=== PATIENT | male | born 1990 | race Hispanic/Latino ===

== ENCOUNTER 2019-06-20 22:03 | Emergency (ER) | payer SELFPAY ==
[2019-06-20] MEDS ORDERED: NA CHLORIDE 0.9% 1,000 ML ONE (22:47)
[2019-06-20] MEDS ORDERED: ACETAMINOPHEN 500 MG TAB ONE (23:03)
--- NOTE | 2019-06-21 00:42 | EDPHYS ---
Physician Documentation [facility] Name: Kieran Carrasquillo Age: 29 yrs Sex: Male : 1990 Arrival Date: 06/20/2019 Time: 22:08 Bed 14 Private MD: ED Physician Praveen Shannon HPI: 06/20 22:40 This 29 yrs old Male presents to ER via Ambulatory with complaints of Fever, rn Chills. 22:40 The patient reports fever, not measured (subjective). Onset: The symptoms/episode rn began/occurred yesterday. Modifying factors: there are no obvious modifying factors. Associated signs and symptoms: Pertinent positives: cough, myalgias, sore throat. Severity of symptoms: At their worst the symptoms were moderate in the emergency department the symptoms have improved. The patient has not experienced similar symptoms in the past. Reports woke up today with fever/chills/muscle aches/fatigue. No known sick contacts. Took motrin and went to work, outside, got home and felt worse. Denies chest pain/sob/abd pain/vomiting/diarrhea. States drinking some water but probably not enough.. Historical: - Allergies: 22:15 No Known Allergies; ca1 - Home Meds: 22:15 None [Active]; ca1 - PMHx: 22:15 None; ca1 - PSHx: 22:15 None; ca1 - Immunization history:: Adult Immunizations not up to date. - Social history:: Smoking status: Patient uses tobacco products, denies chronic smoking, but will smoke occasionally. - Ebola Screening: : Patient negative for fever greater than or equal to 101.5 degrees Fahrenheit, and additional compatible Ebola Virus Disease symptoms Patient denies exposure to infectious person Patient denies travel to an Ebola-affected area in the 21 days before illness onset No symptoms or risks identified at this time. - Family history:: not pertinent. - Hospitalizations: : No recent hospitalization is reported. 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 Head/Face: Normocephalic, atraumatic. Eyes: Pupils equal round and reactive to light, extra-ocular motions intact. Lids and lashes normal. Conjunctiva and sclera are non-icteric and not injected. Cornea within normal limits. Periorbital areas with no swelling, redness, or edema. ENT: Mild pharyngeal erythema, no swelling, no stridor, no exudate Neck: Trachea midline, no thyromegaly or masses palpated, and no cervical lymphadenopathy. Supple, full range of motion without nuchal rigidity, or vertebral point tenderness. No Meningismus. Cardiovascular: Regular rate and rhythm. No pulse deficits. Respiratory: Lungs have equal breath sounds bilaterally. No increased work of breathing, no retractions or nasal flaring. Abdomen/GI: soft, non-tender MS/ Extremity: Pulses equal, no cyanosis. Neurovascular intact. Full, normal range of motion. Equal circumference. Neuro: Awake and alert, GCS 15, oriented to person, place, time, and situation. Cranial nerves II-XII grossly intact. Motor strength 5/5 in all extremities. Sensory grossly intact. Cerebellar exam normal. Vital Signs: 22:15 BP 115 / 79; Pulse 87; Resp 19 S; Temp 100.3(O); Pulse Ox 97% on R/A; Weight 120.2 kg ca1 (R); Height 6 ft. (182.88 cm) (R); Pain 10/10; 22:50 BP 102 / 63; Pulse 95; Resp 20; Temp 102.2; Pulse Ox 100% ; Pain 10/10; rr5 06/21 00:22 BP 117 / 72; Pulse 66; Resp 15; Temp 100; Pulse Ox 100% ; rr5 00:52 BP 111 / 75; Pulse 69; Resp 17; Temp 100; Pulse Ox 98% ; rr5 06/20 22:15 Body Mass Index 35.94 (120.20 kg, 182.88 cm) ca1 MDM: 06/20 22:29 Patient medically screened. rn 06/21 00:35 Differential diagnosis: viral Infection, bacterial infection, URI, pneumonia. Data rn reviewed: vital signs, nurses notes, lab test result(s), radiologic studies, plain films, and as a result, I will discharge patient. Test interpretation: by ED physician or midlevel provider: plain radiologic studies, CXR negative for focal pneumonia or infiltrate. Counseling: I had a detailed discussion with the patient and/or guardian regarding: the historical points, exam findings, and any diagnostic results supporting the discharge/admit diagnosis, lab results, radiology results, the need for outpatient follow up, to return to the emergency department if symptoms worsen or persist or if there are any questions or concerns that arise at home. Response to treatment: the patient's symptoms have mildly improved after treatment, and as a result, I will discharge patient. Special discussion: I discussed with the patient/guardian in detail that at this point there is no indication for admission to the hospital. It is understood, however, that if the symptoms persist or worsen the patient needs to return immediately for re-evaluation. ED course: Neg w/u here, most likely viral syndrome given constellation of symptoms, no meningismus or neck stiffness. Will dc home with return precautions. . 06/20 22:39 Order name: Flu; Complete Time: 23:17 rn 06/20 22:39 Order name: Strep; Complete Time: 23:17 rn 06/20 22:39 Order name: [place] Screen Profile; Complete Time: 00:34 rn 06/20 22:39 Order name: XRAY Chest (1 view) rn 06/20 23:15 Order name: Throat Culture EDID 06/20 22:39 Order name: IV Start; Complete Time: 23:06 rn Administered Medications: 06/20 23:05 Drug: NS 0.9% 1000 ml Route: IV; Rate: 1000 ml; Site: right antecubital; rr5 06/21 00:20 Follow up: Response: No adverse reaction; IV Status: Completed infusion; IV Intake: rr5 1000ml 06/20 23:05 Drug: Tylenol 1000 mg {Note: Temp 101.2 .} Route: PO; rr5 06/21 00:05 Follow up: Response: No adverse reaction rr5 Disposition: 06/21/19 00:37 Discharged to Home. Impression: Fever, unspecified, Acute upper respiratory infection, unspecified. - Condition is Stable. - Discharge Instructions: Fever, Adult, Upper Respiratory Infection, Adult, Viral Respiratory Infection. - Medication Reconciliation Form, Thank You Letter, Antibiotic Education, Prescription Opioid Use form. - Follow up: Private Physician; When: As needed; Reason: Recheck today's complaints, Re-evaluation by your physician. - Problem is new. - Symptoms have improved. Signatures: Dispatcher [employer] EDMS Praveen Shannon MD MD rn Roque, Raymond, RN RN rr5 Sayra Escobedo RN RN ca1 Corrections: (The following items were deleted from the chart) 00:54 00:37 06/21/2019 00:37 Discharged to Home. Impression: Fever, unspecified; Acute upper rr5 respiratory infection, unspecified. Condition is Stable. Forms are Medication Reconciliation Form, Thank You Letter, Antibiotic Education, Prescription Opioid Use. Follow up: Private Physician; When: As needed; Reason: Recheck today's complaints, Re-evaluation by your physician. Problem is new. Symptoms have improved. rn
--- NOTE | 2019-06-21 00:42 | ER ---
Nurse's Notes [facility] Name: Kieran Carrasquillo Age: 29 yrs Sex: Male : 1990 Arrival Date: 06/20/2019 Time: 22:08 Bed 14 Private MD: Diagnosis: Fever, unspecified;Acute upper respiratory infection, unspecified Presentation: 06/20 22:11 Presenting complaint: Patient states: "I have been having fever and chills since ca1 Thursday night." Pt c/o headache, fatigue, dizziness, sore throat, cough and pain all over. Denies N/V/D. Transition of care: patient was not received from another setting of care. Onset of symptoms was June 18, 2019. Risk Assessment: Do you want to hurt yourself or someone else? Patient reports no desire to harm self or others. Initial Sepsis Screen: Does the patient meet any 2 criteria? No. Patient's initial sepsis screen is negative. Does the patient have a suspected source of infection? No. Patient's initial sepsis screen is negative. Care prior to arrival: None. 22:11 Method Of Arrival: Ambulatory ca1 22:11 Acuity: RONNIE 4 ca1 Historical: - Allergies: 22:15 No Known Allergies; ca1 - Home Meds: 22:15 None [Active]; ca1 - PMHx: 22:15 None; ca1 - PSHx: 22:15 None; ca1 - Immunization history:: Adult Immunizations not up to date. - Social history:: Smoking status: Patient uses tobacco products, denies chronic smoking, but will smoke occasionally. - Ebola Screening: : Patient negative for fever greater than or equal to 101.5 degrees Fahrenheit, and additional compatible Ebola Virus Disease symptoms Patient denies exposure to infectious person Patient denies travel to an Ebola-affected area in the 21 days before illness onset No symptoms or risks identified at this time. - Family history:: not pertinent. - Hospitalizations: : No recent hospitalization is reported. Screenin:31 Abuse screen: Denies threats or abuse. Denies injuries from another. Nutritional rr5 screening: No deficits noted. Tuberculosis screening: No symptoms or risk factors identified. Fall Risk None identified. Total Christian Fall Scale indicates No Risk (0-24 pts). Assessment: 22:28 General: Appears in no apparent distress. uncomfortable, Behavior is calm, cooperative, rr5 appropriate for age, Reports chills for 2-3 days, fever for fatigue for 2-3 days. Pain: Complains of pain in body Pain does not radiate. Pain currently is 10 out of 10 on a pain scale. Quality of pain is described as aching, Pain began gradually, Is intermittent. Neuro: Level of Consciousness is awake, alert, obeys commands, Oriented to person, place, time, situation, Appropriate for age Reports dizziness, headache. Cardiovascular: Capillary refill < 3 seconds Patient's skin is warm and dry. Respiratory: Reports cough that is Airway is patent Respiratory effort is even, unlabored, Respiratory pattern is regular, symmetrical. GI: Patient currently denies nausea, vomiting. : No signs and/or symptoms were reported regarding the genitourinary system. EENT: Reports pain in throat. Derm: Skin is intact, Skin temperature is warm. Musculoskeletal: Circulation, motion, and sensation intact. Capillary refill < 3 seconds, Reports pain in body. 23:10 Reassessment: Patient appears in no apparent distress at this time. Patient and/or rr5 family updated on plan of care and expected duration. Pain level reassessed. Patient is alert, oriented x 3, equal unlabored respirations, skin warm/dry/pink. awaiting for laboratory results. 06/21 00:00 Reassessment: Patient appears in no apparent distress at this time. Patient and/or rr5 family updated on plan of care and expected duration. Pain level reassessed. Patient is alert, oriented x 3, equal unlabored respirations, skin warm/dry/pink. awaiting for result. 00:45 Reassessment: Patient appears in no apparent distress at this time. Patient is alert, rr5 oriented x 3, equal unlabored respirations, skin warm/dry/pink. discharge instruction given and explained without complaints made. Patient states feeling better. Patient states symptoms have improved. Vital Signs: 06/20 22:15 BP 115 / 79; Pulse 87; Resp 19 S; Temp 100.3(O); Pulse Ox 97% on R/A; Weight 120.2 kg ca1 (R); Height 6 ft. (182.88 cm) (R); Pain 10/10; 22:50 BP 102 / 63; Pulse 95; Resp 20; Temp 102.2; Pulse Ox 100% ; Pain 10/10; rr5 06/21 00:22 BP 117 / 72; Pulse 66; Resp 15; Temp 100; Pulse Ox 100% ; rr5 00:52 BP 111 / 75; Pulse 69; Resp 17; Temp 100; Pulse Ox 98% ; rr5 06/20 22:15 Body Mass Index 35.94 (120.20 kg, 182.88 cm) ca1 ED Course: 06/20 22:08 Patient arrived in ED. ds1 22:14 Triage completed. ca1 22:15 Arm band placed on right wrist. ca1 22:21 Patient has correct armband on for positive identification. Placed in gown. Bed in low ca1 position. Call light in reach. Side rails up X 1. Pulse ox on. NIBP on. 22:23 Jeff Schofield, IDRIS is Primary Nurse. rr5 22:29 Praveen Shannon MD is Attending Physician. rn 22:54 XRAY Chest (1 view) In Process Unspecified. EDMS 22:59 Inserted saline lock: 20 gauge in right antecubital area, using aseptic technique. jd2 23:00 Flu and/or RSV swab sent to lab. Strep swab sent to lab. jd2 06/21 00:52 No provider procedures requiring assistance completed. IV discontinued, intact, rr5 bleeding controlled, No redness/swelling at site. Pressure dressing applied. Administered Medications: 06/20 23:05 Drug: NS 0.9% 1000 ml Route: IV; Rate: 1000 ml; Site: right antecubital; rr5 06/21 00:20 Follow up: Response: No adverse reaction; IV Status: Completed infusion; IV Intake: rr5 1000ml 06/20 23:05 Drug: Tylenol 1000 mg {Note: Temp 101.2 .} Route: PO; rr5 06/21 00:05 Follow up: Response: No adverse reaction rr5 Intake: 00:20 IV: 1000ml; Total: 1000ml. rr5 Outcome: 00:37 Discharge ordered by . rn 00:52 Discharged to home ambulatory, with family. rr5 00:52 Condition: stable 00:52 Discharge instructions given to patient, Instructed on discharge instructions, follow up and referral plans. Demonstrated understanding of instructions, follow-up care. 00:54 Patient left the ED. rr5 Signatures: Dispatcher [facility] Daniel, Daily ds1 Praveen Shannon MD MD rn Donley, Jonika jd2 Jeff Schofield RN RN rr5 Sayra Escobedo RN RN ca1 Corrections: (The following items were deleted from the chart) 06/20 22:16 22:11 Presenting complaint: Patient states: "I have been having fever and chills since ca1 Thursday." Pt c/o fatigue, dizziness, sore throat, and pain all over. Denies N/V/D. ca1 22:11 Presenting complaint: Patient states: "I have been having fever and chills since ca1 Thursday." Pt c/o headache, fatigue, dizziness, sore throat, and pain all over. Denies N/V/D. ca1
[2019-06-21 02:25] VITALS: TEMP 100
[2019-06-21 02:26] VITALS: BP 111/75; O2SAT 98
--- NOTE | 2019-06-21 07:41 | RAD REPORT ---
EXAM DESCRIPTION: RAD - Chest Single View - 06/20/2019 10:53 pm CLINICAL HISTORY: Fever and chills COMPARISON: None. TECHNIQUE: AP portable chest image was obtained 2249 hours . FINDINGS: Lungs are clear. Heart and vasculature are normal. No measurable pleural effusion and no p neumothorax. No acute bony abnormality seen. No acute aortic findings suspected. IMPRESSION: No acute cardiopulmonary process.
== END 2019-06-21 00:54 | disposition home or self-care (01) ==
LOC: ER 22:03
DX: J06.9 Acute upper respiratory infection, unspecified (principal); Z72.0 Tobacco use
CPT/HCPCS: 36415; 71045; 86308; 87070; 87081; 87804; 96360; 99284; J7030